=== PATIENT | female | born 1980 | race Two or more races ===

== ENCOUNTER 2020-03-22 16:41 | Outpatient (CLI) | payer OTHER, MEDICAID | END 2020-03-22 16:42 | disposition home or self-care (01) | LOC: COV 16:41 | PROVIDERS: ATTEND Family Medicine | DX: R50.9 Fever, unspecified (principal); R05 Cough; J02.9 Acute pharyngitis, unspecified; R09.81 Nasal congestion; Z20.828 Contact with and (suspected) exposure to other viral communicable diseases ==